=== PATIENT | female | born 2005 | race Caucasian/White ===

== ENCOUNTER 2025-02-19 08:40 | Emergency (ER) | payer OTHER, MEDICAID ==
[~2025-02-19] VITALS: Ht 165.1 cm; Wt 91.0 kg
[2025-02-19 09:42] VITALS: BP 133/75; PULSE 78; RESP 18; TEMP 98.5; O2SAT 99
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
[2025-02-19] MEDS ORDERED: LIDO5DIS21 TOP (11:00)
== END 2025-02-19 11:07 | disposition home or self-care (01) ==
LOC: ER 08:40 → EDBD 08:40 → ER 11:07
DX: M54.2 Cervicalgia (principal); M54.9 Dorsalgia, unspecified; V43.52XA Car driver injured in collision with other type car in traffic accident, initial encounter; Y93.89 Activity, other specified; Y92.410 Unspecified street and highway as the place of occurrence of the external cause; Y99.8 Other external cause status
CPT/HCPCS: 72040; 72070; 72100